=== PATIENT | male | born 1975 | race Two or more races ===

== ENCOUNTER 2024-10-02 07:59 | Inpatient (IN) | payer MEDICAID, OTHER ==
[~2024-10-02] VITALS: Ht 172.7 cm; Wt 165.8 kg
--- NOTE | 2024-10-02 08:41 | ED.PDOC ---
GI ASSESSMENT HPI Comments 48 y/o M, presents to the ED for CC of abdominal pain. Patient states, he has been experiencing diffuse abdominal pain with associated nausea onset, 1130 last night (10/01/24). Patient reports, he has been unable to have a bowel movement and has not been passing gas. Patient denies vomiting, diarrhea, melena, fever, or chills. No other symptoms or modifying factors present at this time. Chief Complaint: Abdominal Pain Time Seen by MD: 08:30 Reviewed Notes: Nurses Notes, Medications, Allergies Allergies: Coded Allergies: NO KNOWN ALLERGIES (Unverified , 10/02/24) Information Source: Patient Mode of Arrival: Ambulatory Timing: Hours Duration: Since onset Prehospital treatment: None Quality: None Vomitus: None Stool: Impaction Severity: Moderate Recent: None Recent Hx of: None Pain Location: Diffuse Modifying Factors: Nothing Associated sign and symptoms: Nausea, Abdominal Pain Past Medical History PAST MEDICAL HISTORY: Denies Surgical History: Denies all surgeries Family History Family History: Unknown Social History Smoker: Non-Smoker Alcohol: Denies ETOH Use Drugs: Denies Drug Use Lives In: Home Constitutional: denies: chills, diaphoresis, fatigue, fever, malaise, sweats, weakness, others EENTM: denies: blurred vision, double vision, ear bleeding, ear discharge, ear drainage, ear pain, ear ringing, eye pain, eye redness, hearing loss, mouth pain, mouth swelling, nasal discharge, nose bleeding, nose congestion, nose pain, photophobia, tearing, throat pain, throat swelling, voice changes, others Respiratory: denies: cough, hemoptysis, orthopnea, SOB at rest, shortness of breath, SOB with excertion, stridor, wheezing, others Cardiovascular: denies: chest pain, dizzy spells, diaphoresis, Dyspnea on exertion, edema, irregular heart beat, left arm pain, lightheadedness, palpitations, PND, syncope, others Gastrointestinal: reports: abdominal pain, nausea; denies: abdomen distended, blood streaked bowels, constipated, diarrhea, dysphagia, difficulty swallowing, hematemesis, melena, poor appetite, poor fluid intake, rectal bleeding, rectal pain, vomiting, others Genitourinary: denies: burning, dysuria, flank pain, frequency, hematuria, incontinence, penile discharge, penile sore, pain, testicle pain, testicle swelling, urgency, others Neurological: denies: dizziness, fainting, headache, left sided numbness, left sided weakness, numbness, paresthesia, pre-existing deficit, right sided numbness, right sided weakness, seizure, speech problems, tingling, tremors, wea kness, others Musculoskeletal: denies: back pain, gout, joint pain, joint swelling, muscle pain, muscle stiffness, neck pain, others Integumetry: denies: bruises, change in color, change in hair/nails, dryness, l aceration, lesions, lumps, rash, wounds, others Allergic/Immunocompromised: denies: Difficulty Healing, Frequent Infections, Hives, Itching, others Hematologic/Lymphatic: denies: anemia, blood clots, easy bleeding, easy bruising, swollen glands, others Endocrine: denies: excessive hunger, excessive sweating, excessive thirst, excessive urination, flushing, intolerance to cold, intolerance to heat, unexplained weight gain, unexplained weight loss, others Psychiatric: denies: anxiety, bipolar disorder, depression, hopeless, panic disorder, schizophrenia, sleepless, suicidal, others All Other Systems: Reviewed and Negative Physical Exam General Appearance: Moderate Distress HEENT: Normal ENT Inspection, Pharynx Normal, TMs Normal Neck: Full Range of Motion, Non-Tender, Normal, Normal Inspection Respiratory: Chest Non-Tender, Lungs Clear, No Accessory Muscle Use, No Respiratory Distress, Normal Breath Sounds Cardiovascular: No Edema, No JVD, No Murmur, No Gallop, Normal Peripheral Pulses, Regular Rate/Rhythm Breast Exam: Deferred Gastrointestinal: Diffuse, No Organomegaly, No Pulsatile Mass, Normal Bowel Sounds, Soft Genitalia: Deferred Pelvic: Deferred Rectal: Deferred Extremities: No calf tenderness, Normal capillary refill, Normal inspection, Normal range of motion, Non-tender, No pedal edema Musculoskeletal : Apperance: Normal Neurologic: Alert, lab tech II-XII nml as Tested, No Motor Deficits, Normal Affect, Normal Mood, No Sensory Deficits Cerebellar Function: NOT DONE Reflexes: NOT DONE Skin: Dry, Normal Color, Warm Peripheral Pulses: 3+ Radial (R), 3+ Radial (L) Lymphatic: No Adenopathy Was a procedure done? Was a procedure done?: No GI differential Dx Differential Diagnosis: Bowel Obstruction, Constipation, Diverticular disease, Gastritis/PUD, Gastroenteritis, Inflammatory BD, Electrolyte Imbalance, Food Poisoning, Bacterial, Viral X-Ray, Labs, Meds, VS Vital Signs Date Time Temp Pulse Resp B/P (MAP) Pulse Ox O2 Delivery O2 Flow Rate FiO2 10/02/24 10:31 98.7 94 16 107/73 (84) 97 98.7 10/02/24 09:48 94 16 107/73 10/02/24 09:25 98.8 108 22 134/72 (92) 97 98.8 10/02/24 09:25 108 22 97 Room Air 10/02/24 09:20 98 15 97 Room Air* 0 21 10/02/24 09:18 98 15 134/72 10/02/24 08:03 98.2 93 18 127/80 98 98.2 Lab Test 10/02/24 08:25 Range/Units White Blood Count 14.1 H 4.4-10.8 10^3/uL Red Blood Count 5.17 4.5-5.90 10^6/uL Hemoglobin 16.5 13.5-17.5 g/dL Hematocrit 46.0 41.0-53.0 % Mean Corpuscular Volume 89.0 80.0-100.0 fL Mean Corpuscular Hemoglobin 31.9 28.0-32.0 pg Mean Corpuscular Hemoglobin Concent 35.8 32.0-36.0 g/dL Red Cell Distribution Width 12.0 11.8-14.3 % Platelet Count 291 140-450 10^3/uL Mean Platelet Volume 8.0 6.9-10.8 fL Neutrophils (%) (Auto) 85.4 H 37.0-80.0 % Lymphocytes (%) (Auto) 6.2 L 10.0-50.0 % Monocytes (%) (Auto) 7.9 0.0-12.0 % Eosinophils (%) (Auto) 0.1 0.0-7.0 % Basophils (%) (Auto) 0.4 0.0-2.0 % Neutrophils # (Auto) 12.1 H 1.6-8.6 10 ^3/uL Lymphocytes # (Auto) 0.9 0.4-5.4 10 ^3/uL Monocytes # (Auto) 1.1 0-1.3 10 ^3/uL Eosinophils # (Auto) 0 0-0.8 10 ^3/uL Basophils # (Auto) 0.1 0-0.2 10 ^3/uL Nucleated Red Blood Cells 0.0 % Sodium Level 138 136-145 mmol/L Potassium Level 3.7 3.5-5.1 mmol/L Chloride Level 102 98-107 mmol/L Carbon Dioxide Level 27 20-31 mmol/L Anion Gap 9 5-15 Blood Urea Nitrogen 7 L 9-23 mg/dL Creatinine 0.90 0.700-1.30 mg/dL Glomerular Filtration Rate Calc 107 >90 mL/min BUN/Creatinine Ratio 7.8 L 10.0-20.0 Serum Glucose 111 H 74-106 mg/dL Calcium Level 9.2 8.7-10.4 mg/dL Current Medications Medications (Trade) Dose Ordered Sig/Corbin Route Start Time Stop Time Status Last Admin Morphine Sulfate 4 mg ONCE ONCE IV 10/02/24 08:45 10/02/24 08:46 DC 10/02/24 09:18 Ondansetron HCl (Zofran) 4 mg ONCE ONCE IV 10/02/24 08:45 10/02/24 08:46 DC 10/02/24 09:17 Sodium Chloride 1,000 ml @ 1,000 mls/hr Q1H ONCE IV 10/02/24 08:45 10/02/24 09:44 DC 10/02/24 09:17 Patient alert. Complaining of abdominal pain. WBC elevated. Hemoglobin within normal limits. Establish intravenous access. Was given fluids. Was given morphine. Was given Zofran. Possible colitis. Explained to the patient. Continue monitoring. [place] [id number] Ph: [phone] DIAGNOSTIC IMAGING Diagnostic Imaging Report : [id number] Signed with Addenda PATIENT: DANNI ELIZABETH LEOACCT: [id number] UNIT: [id number] : 1975 LOC: ER ROOM / BED: / AGE / SEX: 48 / M ADM STATUS: REG ER SERVICE [id number] ORDERING PHYSICIAN: NERIS AVILA MD PROCEDURE(s): ABPL - CT AB PEL WO CON-NO ORAL OR IV REASON: colitis ORDER NUMBER(s): [id number], ACCESSION NUMBER(s): [id number] ADDENDUM ADDENDUM # 1 Critical result: Sigmoid diverticulitis with contained perforation. Findings discussed with on 10/02/2024 at 11:55 a.m. TRAVEL REGISTERED NURSE ONCOLOGY, by Dr. Rubio with acknowledged receipt and understanding of the findings. ORIGINAL REPORT Exam: CT CT AB PEL WO CON-NO ORAL OR IV History: Colitis Comparison Study: None Technique: Multidetector spiral CT of the abdomen and pelvis was performed from lung bases to pubic symphysis. Imaging was performed without intravenous contrast. Coronal and sagittal multiplanar reformats were obtained from the axial data set by the technologist. Radiation Dose : 1. Abdomen/Pelvis: CTDIvol 9.71 mGy, DLP 584.9 mGy*cm. Findings: Evaluation of vasculature and solid organs is limited due to lack of intravenous contrast use. Lung Bases: Lung bases are clear. Visualized portions of the heart and pericardium are unremarkable. Liver: The liver is normal in size. No focal lesions. Gallbladder and Biliary Tree: The gallbladder is unremarkable. No intrahepatic or extrahepatic biliary ductal dilatation. Spleen: Unremarkable Pancreas: The pancreas is grossly unremarkable. Adrenal Glands: Unremarkable Kidneys: Kidneys are unremarkable without calculi or hydronephrosis. GI tract: The stomach is grossly normal in appearance. No evidence of small bowel wall thickening or abnormal dilatation to suggest bowel obstruction. Sigmoid diverticulosis. Marked mucosal thickening of the sigmoid colon with fat stranding consistent with acute sigmoid diverticulitis. Foci of air adjacent to the inflamed sigmoid colon consistent with contained perforation. Normal appendix. No acute appendicitis. Peritoneum/mesentery/retroperitoneum. Small foci of free intraperitoneal air adjacent to the inflamed sigmoid colon. No ascites. No evidence of suspicious lymphadenopathy. Abdominal Wall: Unremarkable. Vasculature: The visualized abdominal aorta is normal in size and caliber. Evaluation of abdominal and pelvic vessels is limited due to lack of intravenous contrast. Urinary Bladder: Grossly unremarkable for degree of distention. Pelvic Organs: Unremarkable Musculoskeletal: No aggressive focal bony lesions, acute fractures or dislocation. IMPRESSION: 1. Acute sigmoid diverticulitis with contained microperforation. No fluid collection to suggest abscess. ATED BY: SAL RUBIO MD DICTATED DATE/TIME: 10/02/24956 SIGNED BY: SAL RUBIO MD SIGNED DATE/TIME: 10/02/24956 CC: Exam: CT CT AB PEL WO CON-NO ORAL OR IV History: Colitis Comparison Study: None Technique: Multidetector spiral CT of the abdomen and pelvis was performed from lung bases to pubic symphysis. Imaging was performed without intravenous contrast. Coronal and sagittal multiplanar reformats were obtained from the axial data set by the technologist. Radiation Dose : 1. Abdomen/Pelvis: CTDIvol 9.71 mGy, DLP 584.9 mGy*cm. Findings: Evaluation of vasculature and solid organs is limited due to lack of intravenous contrast use. Lung Bases: Lung bases are clear. Visualized portions of the heart and pericardium are unremarkable. Liver: The liver is normal in size. No focal lesions. Gallbladder and Biliary Tree: The gallbladder is unremarkable. No intrahepatic or extrahepatic biliary ductal dilatation. Spleen: Unremarkable Pancreas: The pancreas is grossly unremarkable. Adrenal Glands: Unremarkable Kidneys: Kidneys are unremarkable without calculi or hydronephrosis. GI tract: The stomach is grossly normal in appearance. No evidence of small bowel wall thickening or abnormal dilatation to suggest bowel obstruction. S igmoid diverticulosis. Marked mucosal thickening of the sigmoid colon with fat stranding consistent with acute sigmoid diverticulitis. Foci of air adjacent to the inflamed sigmoid colon consistent with contained perforation. Normal appendix. No acute appendicitis. Peritoneum/mesentery/retroperitoneum. Small foci of free intraperitoneal air adjacent to the inflamed sigmoid colon. No ascites. No evidence of suspicious lymphadenopathy. Abdominal Wall: Unremarkable. Vasculature: The visualized abdominal aorta is normal in size and caliber. Evaluation of abdominal and pelvic vessels is limited due to lack of intravenous contrast. Urinary Bladder: Grossly unremarkable for degree of distention. Pelvic Organs: Unremarkable Musculoskeletal: No aggressive focal bony lesions, acute fractures or dislocation. IMPRESSION: 1. Acute sigmoid diverticulitis with contained microperforation. No fluid collection to suggest abscess. ATED BY: SAL RUBIO MD DICTATED DATE/TIME: 10/02/24947 SIGNED BY: SAL RUBIO MD SIGNED DATE/TIME: 10/02/24947 CC: Time of 1ST Reevaluation: 09:00 Reevaluation 1ST: Unchanged Patient Education/Counseling: Diagnosis, Treatment Family Education/Counseling: No Family Present SEPSIS Sepsis Screen Date sepsis recognized/suspect: Oct 02, 2024 Time Sepsis recognized/suspect: 803 Recent Procedure: No On Antibiotic Therapy: No Respiratory Rate >20: No Heart Rate >90: Yes Temp<36 C (96.8 F) or >38.3 C: No SBP <90 or MAP <65 mmHG: No New Acute Mental Status Change: No Is the patient on CPAP, BIPAP,: No Physician Orders Ct Ab Pel Wo Con-No Oral Or Iv (10/02/24 08:39) Saline Lock (10/02/24 09:11) * Surgical Consult (10/02/24 ) Vital Signs Date Time Temp Pulse Resp B/P (MAP) Pulse Ox O2 Delivery O2 Flow Rate FiO2 10/02/24 10:31 98.7 94 16 107/73 (84) 97 98.7 10/02/24 09:48 94 16 107/73 10/02/24 09:25 98.8 108 22 134/72 (92) 97 98.8 10/02/24 09:25 108 22 97 Room Air 10/02/24 09:20 98 15 97 Room Air* 0 21 10/02/24 09:18 98 15 134/72 10/02/24 08:03 98.2 93 18 127/80 98 98.2 Laboratory Tests Test 10/02/24 08:25 White Blood Count 14.1 10^3/uL (4.4-10.8) H Medications Medications Dose Ordered Sig/Corbin Route Start Time Stop Time Status Last Admin Dose Admin Morphine Sulfate 4 mg ONCE ONCE IV 10/02/24 08:45 10/02/24 08:46 DC 10/02/24 09:18 Ondansetron HCl 4 mg ONCE ONCE IV 10/02/24 08:45 10/02/24 08:46 DC 10/02/24 09:17 Sodium Chloride 1,000 ml @ 1,000 mls/hr Q1H ONCE IV 10/02/24 08:45 10/02/24 09:44 DC 10/02/24 09:17 Departure 1 Departure Time of Disposition: 08:59 Impression: Primary Impression: Acute abdominal pain Additional Impression: Diverticulitis of intestine Qualified Codes: K57.80 - Diverticulitis of intestine, part unspecified, with perforation and abscess without bleeding Disposition: ADMITTED INPATIENT Admit to: Med Surg Condition: Guarded Critical Care Note Critical Care Time?: Yes (90 min-critical care time only) Stability Stability form required: No Heart Score Heart Score: Heart Score Response (Comments) Value History N/A 0 EKG N/A 0 Age N/A 0 Risk Factors N/A 0 Troponin N/A 0 Total 0 I personally scribed for NERIS AVILA MD ([email or web address]) on 10/02/24 at 08:41. Electronically submitted by Danielle Chavarria ([email or web address]). I personally scribed for NERIS AVILA MD ([email or web address]) on 10/02/24 at 10:23. Electronically submitted by Danielle Chavarria ([email or web address]). NERIS AVILA MD Oct 02, 2024 08:41
[2024-10-02 08:51] LABS: Hematocrit 46.0 % (41.0-53.0); Hemoglobin 16.5 g/dL (13.5-17.5); Mean Corpuscular Hemoglobin 31.9 pg (28.0-32.0); Mean Corpuscular Volume 89.0 fL (80.0-100.0); Nucleated Red Blood Cells % 0.0 %
[2024-10-02 09:12] LABS: Chloride 102 mmol/L (98-107); Potassium 3.7 mmol/L (3.5-5.1); Sodium 138 mmol/L (136-145)
[2024-10-02 09:13] LABS: Anion Gap 9 (5-15); Carbon Dioxide 27 mmol/L (20-31)
[2024-10-02 09:14] LABS: Calcium 9.2 mg/dL (8.7-10.4)
[2024-10-02] MEDS: SODIUM CHLORIDE 0.9% 1,000 ML IV ONE ×2 (09:17→11:27)
[2024-10-02] MEDS: ONDANSETRON HCL 4 MG/2 ML VIAL IV ONE (09:17)
[2024-10-02] MEDS: MORPHINE SULFATE 4 MG/ML SYR/VIAL IV ONE (09:18)
[2024-10-02 09:19] LABS: BUN/Creatinine Ratio 7.8 (10.0-20.0); Blood Urea Nitrogen 7 mg/dL (9-23); Glucose 111 mg/dL (74-106)
[2024-10-02 09:20] VITALS: PULSE 98; RESP 15; O2SAT 97
--- NOTE | 2024-10-02 09:49 | DVH ---
Exam: CT CT AB PEL WO CON-NO ORAL OR IV History: Colitis Comparison Study: None Technique: Multidetector spiral CT of the abdomen and pelvis was performed from lung bases to pubic s ymphysis. Imaging was performed without intravenous contrast. Coronal and sagittal multiplanar reform ats were obtained from the axial data set by the technologist. Radiation Dose : 1. Abdomen/Pelvis: CTDIvol 9.71 mGy, DLP 584.9 mGy*cm. Findings: Evaluation of vasculature and solid organs is limited due to lack of intravenous contrast use. Lung Bases: Lung bases are clear. Visualized portions of the heart and pericardium are unremarkable. Liver: The liver is normal in size. No focal lesions. Gallbladder and Biliary Tree: The gallbladder is unremarkable. No intrahepatic or extrahepatic biliar y ductal dilatation. Spleen: Unremarkable Pancreas: The pancreas is grossly unremarkable. Adrenal Glands: Unremarkable Kidneys: Kidneys are unremarkable without calculi or hydronephrosis. GI tract: The stomach is grossly normal in appearance. No evidence of small bowel wall thickening or abnormal dilatation to suggest bowel obstruction. Sigmoid diverticulosis. Marked mucosal thickening of the sigmoid colon with fat stranding consistent with acute sigmoid diverticulitis. Foci of air adj acent to the inflamed sigmoid colon consistent with contained perforation. Normal appendix. No acute appendicitis. Peritoneum/mesentery/retroperitoneum. Small foci of free intraperitoneal air adjacent to the inflamed sigmoid colon. No ascites. No evidence of suspicious lymphadenopathy. Abdominal Wall: Unremarkable. Vasculature: The visualized abdominal aorta is normal in size and caliber. Evaluation of abdominal a nd pelvic vessels is limited due to lack of intravenous contrast. Urinary Bladder: Grossly unremarkable for degree of distention. Pelvic Organs: Unremarkable Musculoskeletal: No aggressive focal bony lesions, acute fractures or dislocation. IMPRESSION: 1. Acute sigmoid diverticulitis with contained microperforation. No fluid collection to suggest absce ss.
[2024-10-02] MEDS ORDERED: SODIUM CHLORIDE 0.9% 1,000 ML IV ONE (11:00)
[2024-10-02] MEDS: cefTRIAXone 1GM/50ML D5W 50 ML IV ONE ×2 (12:02→12:24)
[2024-10-02] MEDS: SODIUM CHLORIDE 0.9% 1,000 ML IV SCH (12:30)
[2024-10-02] MEDS ORDERED: TEMAZEPAM 15 MG CAP PO PRN (12:30)
[2024-10-02] MEDS ORDERED: ONDANSETRON HCL 4 MG/2 ML VIAL IV PRN (12:30)
[2024-10-02] MEDS ORDERED: NITROGLYCERIN 0.4 MG SL TAB SL PRN (12:30)
--- NOTE | 2024-10-02 12:31 | DVHHP2 ---
History of Present Illness Reason for Visit: Abdominal pain History of Present Illness 48-year-old male with no known past medical or surgical history presents with acute abdominal pain that began around 10:30 PM last night. The pain has been persistent since onset, described as sharp in nature, without any identified alleviating or aggravating factors. He denies fever, vomiting, diarrhea, melena, or hematemesis, but reports noticing a small amount of blood when wiping. He has never experienced similar symptoms before. In the ED, vital signs were stable. Laboratory evaluation revealed leukocytosis with WBC 14.1 remainder of CBC and BMP were unremarkable. CT abdomen and pelvis demonstrated acute sigmoid d iverticulitis with microperforation. He is admitted for IV antibiotics, pain control, and surgical evaluation. Past Medical History See HPI above Past Surgical History See HPI above Family History Reviewed, non-contributory to the management of this case. Past Social History The patient lives at home, denies smoking, alcohol or illicit drugs abuse. Review of Systems Constitutional: No: Fever, Chills, Sweats, Weakness, Malaise, Other Eyes: No: Pain, Vision change, Conjunctivae inflammation, Eyelid inflammation, Other, Redness ENT: No: Ear pain, Ear discharge, Nose pain, Nose discharge, Nose congestion, Mouth pain, Mouth swelling, Throat pain, Throat swelling, Other Respiratory: No: Cough, Dry, Shortness of breath, SOB with excertion, Wheezing, Hemoptysis, Pleuritic Pain, Sputum, Wheezing, Other Cardiovascular: No: Chest Pain, Palpitations, Orthopnea, Paroxysmal Noc. Dyspnea, Edema, Lt Headedness, Other Gastrointestinal: Nausea, Vomiting, Abdominal Pain; No: Diarrhea, Constipation, Melena, Hematochezia, Other Genitourinary: No Dysuria, No Frequency, No Incontinence, No Hematuria, No Retention, No Other Musculoskeletal: No: other, neck pain, shoulder pain, arm pain, back pain, hand pain, leg pain, foot pain Skin: No: Rash, Lesions, Jaundice, Bruising, Other Neurological: No: Weakness, Numbness, Incoordination, Change in speech, Confusion, Seizures, Other Allergies: Coded Allergies: NO KNOWN ALLERGIES (Unverified , 10/02/24) Exam Vital Signs Vital Signs Date Time Temp Pulse Resp B/P (MAP) Pulse Ox O2 Delivery O2 Flow Rate FiO2 10/02/24 10:31 98.7 94 16 107/73 (84) 97 98.7 10/02/24 09:25 Room Air 10/02/24 09:20 0 21 General Appearance: Alert, Oriented X3, Cooperative, No acute distress HEENT: Atraumatic, PERRLA, EOMI, Mucous membr. moist/pink Respiratory: Clear to auscultation, Normal air movement Cardiovascular: Regular rate, Normal S1, Normal S2, No murmurs Abdominal: Normal bowel sounds, No hepatospenomegaly, No masses, Other (guarding and rebound tenderness) Extremities: No clubbing, No cyanosis, No edema, Normal pulses, No tenderness/swelling Skin: No rashes, No breakdown, No significant lesion Neuro: Normal gait, Normal speech, Strength at 5/5 X4 ext, Normal tone, Sensation intact, Cranial nerves 3-12 NL Psych/Mental Status: Mental status NL, Mood NL Labs/Xrays CT abdomen and pelvis shows acute sigmoid diverticulitis with microperforation I reviewed labs, imaging CT scan abdomen pelvis, EKG and all diagnostic studies on this patient from ED records and the medical chart Labs Test 10/02/24 11:34 10/02/24 08:25 Range/Units Lactic Acid Level 1.5 0.4-2.0 mmol/L White Blood Count 14.1 H 4.4-10.8 10^3/uL Red Blood Count 5.17 4.5-5.90 10^6/uL Hemoglobin 16.5 13.5-17.5 g/dL Hematocrit 46.0 41.0-53.0 % Mean Corpuscular Volume 89.0 80.0-100.0 fL Mean Corpuscular Hemoglobin 31.9 28.0-32.0 pg Mean Corpuscular Hemoglobin Concent 35.8 32.0-36.0 g/dL Red Cell Distribution Width 12.0 11.8-14.3 % Platelet Count 291 140-450 10^3/uL Mean Platelet Volume 8.0 6.9-10.8 fL Neutrophils (%) (Auto) 85.4 H 37.0-80.0 % Lymphocytes (%) (Auto) 6.2 L 10.0-50.0 % Monocytes (%) (Auto) 7.9 0.0-12.0 % Eosinophils (%) (Auto) 0.1 0.0-7.0 % Basophils (%) (Auto) 0.4 0.0-2.0 % Neutrophils # (Auto) 12.1 H 1.6-8.6 10 ^3/uL Lymphocytes # (Auto) 0.9 0.4-5.4 10 ^3/uL Monocytes # (Auto) 1.1 0-1.3 10 ^3/uL Eosinophils # (Auto) 0 0-0.8 10 ^3/uL Basophils # (Auto) 0.1 0-0.2 10 ^3/uL Nucleated Red Blood Cells 0.0 % Sodium Level 138 136-145 mmol/L Potassium Level 3.7 3.5-5.1 mmol/L Chloride Level 102 98-107 mmol/L Carbon Dioxide Level 27 20-31 mmol/L Anion Gap 9 5-15 Blood Urea Nitrogen 7 L 9-23 mg/dL Creatinine 0.90 0.700-1.30 mg/dL Glomerular Filtration Rate Calc 107 >90 mL/min BUN/Creatinine Ratio 7.8 L 10.0-20.0 Serum Glucose 111 H 74-106 mg/dL Calcium Level 9.2 8.7-10.4 mg/dL SEPSIS Sepsis Screen Date sepsis recognized/suspect: Oct 02, 2024 Time Sepsis recognized/suspect: 08 Recent Procedure: No On Antibiotic Therapy: No Respiratory Rate >20: No Heart Rate >90: Yes Temp<36 C (96.8 F) or >38.3 C: No SBP <90 or MAP <65 mmHG: No New Acute Mental Status Change: No Is the patient on CPAP, BIPAP,: No Physician Orders Ct Ab Pel Wo Con-No Oral Or Iv (10/02/24 08:39) Saline Lock (10/02/24 09:11) * Surgical Consult (10/02/24 ) Blood Culture (10/02/24 10:55) Sodium Chloride 0.9% (10/02/24 11:00) Vital Signs Date Time Temp Pulse Resp B/P (MAP) Pulse Ox O2 Delivery O2 Flow Rate FiO2 10/02/24 10:31 98.7 94 16 107/73 (84) 97 98.7 10/02/24 09:48 94 16 107/73 10/02/24 09:25 98.8 108 22 134/72 (92) 97 98.8 10/02/24 09:25 108 22 97 Room Air 10/02/24 09:20 98 15 97 Room Air* 0 21 10/02/24 09:18 98 15 134/72 10/02/24 08:03 98.2 93 18 127/80 98 98.2 Laboratory Tests Test 10/02/24 08:25 10/02/24 11:34 White Blood Count 14.1 10^3/uL (4.4-10.8) H Lactic Acid Level 1.5 mmol/L (0.4-2.0) Medications Medications Dose Ordered Sig/Corbin Route Start Time Stop Time Status Last Admin Dose Admin Ceftriaxone Sodium 50 ml @ 100 mls/hr ONCE ONCE IV 10/02/24 11:00 10/02/24 11:29 DC 10/02/24 12:24 100 MLS/HR Metronidazole 100 ml @ 100 mls/hr ONCE ONCE IV 10/02/24 11:00 10/02/24 11:59 DC 10/02/24 11:54 100 MLS/HR Morphine Sulfate 4 mg ONCE ONCE IV 10/02/24 08:45 10/02/24 08:46 DC 10/02/24 09:18 4 MG Ondansetron HCl 4 mg ONCE ONCE IV 10/02/24 08:45 10/02/24 08:46 DC 10/02/24 09:17 4 MG Sodium Chloride 1,000 ml @ 1,000 mls/hr Q1H ONCE IV 10/02/24 08:45 10/02/24 09:44 DC 10/02/24 09:17 1,000 MLS/HR Sodium Chloride 1,000 ml @ 1,000 mls/hr Q1H ONCE IV 10/02/24 11:00 10/02/24 11:59 DC 10/02/24 11:27 1,000 MLS/HR Assessment/Plan Assessment/Plan 48 yr old male with Acute sigmoid diverticulitis with microperforation, requiring IV antibiotics, pain management, and surgical consultation. Acute Sigmoid Diverticulitis with Microperforation critical diagnosis Admit to inpatient medicine NPO initially, IV antibiotics: piperacillin-tazobactam (Zosyn) IV fluids for hydration Pain management with IV analgesics as needed General surgery consult for co-management Dr. Martin Monitor for signs of peritonitis or worsening perforation pre op cxr, type and screen inr and ekg acute Leukocytosis secondary to intra-abdominal infection Monitor CBC daily Continue antibiotics as above Repeat labs if clinical worsening FEN / PPx Fluids: IV NS maintenance until tolerating oral intake Electrolytes: Monitor daily; replete as needed Nutrition: NPO initially; DVT Prophylaxis: scd since possible planned surgery GI Prophylaxis: Pantoprazole 40 mg IV daily while NPO Disposition: Admit to inpatient service for IV antibiotics, pain control, surgical co- management, and monitoring for potential complications of diverticulitis with microperforation. Plan discussed with: Patient Date of Service: Oct 02, 2024 Billing Provider: MILTON RODRIGUEZ DNP Common Visit Codes: [id number] INP/OBS CARE (HIGH) MILTON RODRIGUEZ DNP Oct 02, 2024 12:31
[2024-10-02] MEDS: PANTOPRAZOLE 40 MG/10 ML VIAL INJ IV ONE (13:00)
[2024-10-02] MEDS: PIPERACILLIN-TAZOB 3.375GM 100 ML IV ONE (13:00)
[2024-10-02 13:21] LABS: INR 1.05 (0.9-1.15); Prothrombin Time 11.1 sec (9.3-11.8)
--- NOTE | 2024-10-02 15:11 | DVHINCON2 ---
Date of service: Oct 02, 2024 Allergies: Coded Allergies: NO KNOWN ALLERGIES (Unverified , 10/02/24) Current Medications Current Medications Medications (Trade) Dose Ordered Sig/Corbin Route PRN Reason Start Time Stop Time Status Last Admin Sodium Chloride 1,000 ml @ 120 mls/hr Q8H20M IV 10/02/24 12:30 Temazepam (Restoril) 15 mg QHSP PRN PO FOR INSOMNIA 10/02/24 12:30 Ondansetron HCl (Zofran) 4 mg Q4HP PRN IV NAUSEA / VOMITING 10/02/24 12:30 Morphine Sulfate 2 mg Q4HPRN PRN IV SEVERE PAIN (7-10 PAIN SCALE) 10/02/24 12:30 Nitroglycerin (Ntrostat Sublingual) 0.4 mg Q5MINP PRN SL FOR CHEST PAIN 10/02/24 12:30 Piperacillin Sod/ Tazobactam Sod 100 ml @ 25 mls/hr Q6HR IV 10/02/24 18:00 Pantoprazole Sodium (Protonix) 40 mg DAILY IV 10/03/24 10:00 Vital Signs Vital Signs Date Time Temp Pulse Resp B/P (MAP) Pulse Ox O2 Delivery O2 Flow Rate FiO2 10/02/24 14:24 98.3 82 16 105/81 (89) 98 98.3 10/02/24 09:25 Room Air 10/02/24 09:20 0 21 Labs/Diagnostic Data Labs Test 10/02/24 12:45 10/02/24 11:34 10/02/24 08:25 Range/Units Prothrombin Time 11.1 9.3-11.8 sec Prothrombin Time INR 1.05 0.9-1.15 Lactic Acid Level 1.5 0.4-2.0 mmol/L White Blood Count 14.1 H 4.4-10.8 10^3/uL Red Blood Count 5.17 4.5-5.90 10^6/uL Hemoglobin 16.5 13.5-17.5 g/dL Hematocrit 46.0 41.0-53.0 % Mean Corpuscular Volume 89.0 80.0-100.0 fL Mean Corpuscular Hemoglobin 31.9 28.0-32.0 pg Mean Corpuscular Hemoglobin Concent 35.8 32.0-36.0 g/dL Red Cell Distribution Width 12.0 11.8-14.3 % Platelet Count 291 140-450 10^3/uL Mean Platelet Volume 8.0 6.9-10.8 fL Neutrophils (%) (Auto) 85.4 H 37.0-80.0 % Lymphocytes (%) (Auto) 6.2 L 10.0-50.0 % Monocytes (%) (Auto) 7.9 0.0-12.0 % Eosinophils (%) (Auto) 0.1 0.0-7.0 % Basophils (%) (Auto) 0.4 0.0-2.0 % Neutrophils # (Auto) 12.1 H 1.6-8.6 10 ^3/uL Lymphocytes # (Auto) 0.9 0.4-5.4 10 ^3/uL Monocytes # (Auto) 1.1 0-1.3 10 ^3/uL Eosinophils # (Auto) 0 0-0.8 10 ^3/uL Basophils # (Auto) 0.1 0-0.2 10 ^3/uL Nucleated Red Blood Cells 0.0 % Sodium Level 138 136-145 mmol/L Potassium Level 3.7 3.5-5.1 mmol/L Chloride Level 102 98-107 mmol/L Carbon Dioxide Level 27 20-31 mmol/L Anion Gap 9 5-15 Blood Urea Nitrogen 7 L 9-23 mg/dL Creatinine 0.90 0.700-1.30 mg/dL Glomerular Filtration Rate Calc 107 >90 mL/min BUN/Creatinine Ratio 7.8 L 10.0-20.0 Serum Glucose 111 H 74-106 mg/dL Calcium Level 9.2 8.7-10.4 mg/dL Assessment [id number] C/O LLQ PAIN AFEBRILE VSS ABD SOFT TENDER LLQ AC SIGMOID DIVERTICULITIS CONTAINED MICROPERFORATION CLOSE OBSERVATION KEEP NPO IV ABX CONSIDER REPEAT CT SCAN 48 HRS CONSIDER EMERGENT SURGERY BASED ON ONGOING EVAL Plan discussed with: Other SHERIE SY MD Oct 02, 2024 15:10
--- NOTE | 2024-10-02 15:49 | DVHINCON2 ---
DATE OF CONSULTATION: 10/02/2024 HISTORY OF PRESENT ILLNESS: This patient is 48 years old coming in with left lower quadrant pain started yesterday. He has not had this happen before. Some nausea. No vomiting. No constipation or diarrhea. No hematemesis or melena. No bleeding per rectum. PAST MEDICAL HISTORY: No diabetes or hypertension. PAST SURGICAL HISTORY: No surgical history. PHYSICAL EXAMINATION: VITAL SIGNS: Afebrile. Stable signs. HEENT: No evidence of pallor, cyanosis, or jaundice. NECK: Supple and nontender with no thyromegaly or lymphadenopathy. CHEST AND LUNGS: Clear. HEART: Within normal limits. ABDOMEN: Soft. He is tender in the left lower quadrant. No rebound. EXTREMITIES: Unremarkable. NEUROLOGICAL: Intact. CLINICAL IMPRESSION: Sigmoid diverticulitis with contained perforation. PLAN: At this point, needs conservative management, close observation, kept n.p.o. with IV antibiotics and repeat CT scan of the abdomen and pelvis to determine need for surgery or to determine if he is responding to the conservative management. MD VASYL El/ADALBERTO TID: [id number] RECEIPT: [id number] cc: ANNELIESE Keys
[2024-10-02 16:55] VITALS: BP 119/71; PULSE 90; RESP 18; TEMP 98.4; O2SAT 97
[2024-10-02] MEDS: PIPERACILLIN-TAZOB 3.375GM 100 ML IV SCH (17:48)
[2024-10-02] MEDS: MORPHINE SULFATE INJ 2 MG/ml SYRG IV PRN (18:46)
[2024-10-02 21:49] VITALS: BP 107/60; PULSE 81; RESP 20; TEMP 99.8; O2SAT 95
[2024-10-03] VITALS (8 sets, daily range): BP systolic 107–124; BP diastolic 64–73; PULSE 80–109; RESP 16–20; TEMP 98.2–98.9; O2SAT 96–98
[2024-10-03] MEDS ORDERED: ALBUAER3 IN (00:15)
[2024-10-03 05:04] LABS: Hematocrit 42.3 % (41.0-53.0); Hemoglobin 15.0 g/dL (13.5-17.5); Mean Corpuscular Hemoglobin 31.9 pg (28.0-32.0); Mean Corpuscular Volume 89.9 fL (80.0-100.0); Nucleated Red Blood Cells % 0.1 %
[2024-10-03 05:30] LABS: Alanine Aminotransferase 21 U/L (7-40); Albumin 4.1 g/dL (3.2-4.8); Alkaline Phosphatase 64 U/L (46-116); Anion Gap 10 (5-15); BUN/Creatinine Ratio 7.9 (10.0-20.0); Calcium 8.7 mg/dL (8.7-10.4); Carbon Dioxide 24 mmol/L (20-31); Chloride 104 mmol/L (98-107); Potassium 3.5 mmol/L (3.5-5.1); Sodium 138 mmol/L (136-145); Total Protein 6.5 g/dL (5.7-8.2)
[2024-10-03 05:31] LABS: Bilirubin, Total 2.3 mg/dL (0.2-1.0); Blood Urea Nitrogen 7 mg/dL (9-23); Glucose 107 mg/dL (74-106)
[2024-10-03] MEDS: PANTOPRAZOLE 40 MG/10 ML VIAL INJ IV SCH (09:15)
--- NOTE | 2024-10-03 15:49 | DVHPN2 ---
Assessment/Plan Assessment/Plan progress note 48 M admitted for diverticulitis with contained perf. seen by [facility], for conservative management physical exam aox4 PERLLA MMM ctab s1 s2 rrr abdomen soft, tender, no guarding no LE edema labs ekg imaging reviewed acute diverticulitis with rupture surg eval zosyn pain mgmt NPO diet NPO dvt ppx hold full code Plan discussed with: Patient Date of Service: Oct 03, 2024 Billing Provider: EDWIN MCMAHAN MD Common Visit Codes: [id number] INP/OBS CARE(HIGH) EDWIN MCMAHAN MD Oct 03, 2024 15:49
--- NOTE | 2024-10-03 20:26 | DVHPN2 ---
Progress Note Date Seen: Oct 03, 2024 Medical Necessity Reason Pt with a Central, PICC or Fol: No Objective vital signs Vital Sign Date Time Temp Pulse Resp B/P (MAP) Pulse Ox O2 Delivery O2 Flow Rate FiO2 10/03/24 18:28 102 16 121/78 10/03/24 17:16 98.6 97 98.6 10/03/24 07:49 Room Air* 0 21 Total Intake and Output 10/02/24 10/02/24 10/03/24 15:00 23:00 07:00 Intake Total 2100 ml 100 ml 100 ml Balance 2100 ml 100 ml 100 ml medications Current Medications Medications Dose Ordered Sig/Corbin Route Start Time Stop Time Status Last Admin Dose Admin Sodium Chloride 1,000 ml @ 120 mls/hr Q8H20M IV 10/02/24 12:30 10/03/24 13:30 120 MLS/HR Morphine Sulfate 2 mg Q4HPRN PRN IV 10/02/24 12:30 10/03/24 17:59 2 MG Piperacillin Sod/ Tazobactam Sod 100 ml @ 25 mls/hr Q6HR IV 10/02/24 18:00 10/03/24 17:47 25 MLS/HR Pantoprazole Sodium 40 mg DAILY IV 10/03/24 10:00 10/03/24 09:15 40 MG laboratory and microbiology Laboratory Tests 10/03/24 04:13 Test 10/03/24 04:13 Range/Units Serum Glucose 107 H 74-106 mg/dL Microbiology Date/Time Source Procedure Growth Status 10/02/24 11:34 Blood Blood Culture - Preliminary NO GROWTH AFTER 24 HOURS OF INCUBATION. Resulted Problem List/Assessment/Plan Problem List/Assessment/Plan AFEBRILE VSS ABD SOFT LESS TENDER REPEAT CT SCAN ABD PELVIS WITH PO CONTRAST NURSE AT BEDSIDE Plan discussed with: Patient SHERIE SY MD Oct 03, 2024 20:26
[2024-10-04] VITALS (8 sets, daily range): BP systolic 102–132; BP diastolic 60–78; PULSE 61–96; RESP 16–20; TEMP 97.9–98.9; O2SAT 94–96
[2024-10-04 07:42] LABS: Anion Gap 10 (5-15); Carbon Dioxide 24 mmol/L (20-31); Chloride 106 mmol/L (98-107); Sodium 140 mmol/L (136-145)
[2024-10-04 07:43] LABS: Calcium 9.0 mg/dL (8.7-10.4)
[2024-10-04 07:48] LABS: BUN/Creatinine Ratio 10.2 (10.0-20.0); Blood Urea Nitrogen 9 mg/dL (9-23); Glucose 87 mg/dL (74-106)
[2024-10-04 07:51] LABS: Potassium 3.5 mmol/L (3.5-5.1)
[2024-10-04 08:34] LABS: Hematocrit 41.9 % (41.0-53.0); Hemoglobin 14.9 g/dL (13.5-17.5); Mean Corpuscular Hemoglobin 32.0 pg (28.0-32.0); Mean Corpuscular Volume 90.1 fL (80.0-100.0); Nucleated Red Blood Cells % 0.2 %
--- NOTE | 2024-10-04 12:08 | DVHPN2 ---
Progress Note Date Seen: Oct 04, 2024 Medical Necessity Reason Pt with a Central, PICC or Fol: No Objective vital signs Vital Sign Date Time Temp Pulse Resp B/P (MAP) Pulse Ox O2 Delivery O2 Flow Rate FiO2 10/04/24 09:00 98.1 96 16 132/77 (95) 96 98.1 10/04/24 08:00 Room Air* 0 21 Total Intake and Output 10/03/24 10/03/24 10/04/24 15:00 23:00 07:00 Intake Total 100 ml 100 ml 100 ml Balance 100 ml 100 ml 100 ml medications Current Medications Medications Dose Ordered Sig/Corbin Route Start Time Stop Time Status Last Admin Dose Admin Sodium Chloride 1,000 ml @ 120 mls/hr Q8H20M IV 10/02/24 12:30 10/03/24 13:30 120 MLS/HR Morphine Sulfate 2 mg Q4HPRN PRN IV 10/02/24 12:30 10/04/24 05:06 2 MG Piperacillin Sod/ Tazobactam Sod 100 ml @ 25 mls/hr Q6HR IV 10/02/24 18:00 10/04/24 05:04 25 MLS/HR Pantoprazole Sodium 40 mg DAILY IV 10/03/24 10:00 10/04/24 11:15 40 MG laboratory and microbiology Laboratory Tests 10/04/24 07:09 Test 10/04/24 07:09 Range/Units Serum Glucose 87 74-106 mg/dL Microbiology Date/Time Source Procedure Growth Status 10/02/24 11:34 Blood Blood Culture - Preliminary NO GROWTH AFTER 48 HOURS OF INCUBATION. Resulted Problem List/Assessment/Plan Problem List/Assessment/Plan AFEBRILE VSS ABD SOFT LESS TENDER REPEAT CT SCAN ABD PELVIS WITH PO CONTRAST PENDING Plan discussed with: Patient My Orders My Orders Orders - SHERIE SY MD Procedure Category Date Status Time Ct Ab Pel With Oral CT 10/04/24 Logged Con Only 09:00 Dietary Evaluation Review Comments: 1) If patient remains NPO > 7 days, consider EN/TPN to meet at least 75% of estimated daily needs 2) Advance to low-fat, low-fiber diet when medically feasible 3) Follow-up with gastroenterology 4) Continue to monitor I&O, labs, and skin integrity Expected Outcomes/Goals: 1) patient to receive nutrition support within 7 days of NPO status 2) GI symptoms and labs to improve 3) diet to advance 4) f/u in 2-3 days SHERIE SY MD Oct 04, 2024 12:08
--- NOTE | 2024-10-04 14:02 | DVH ---
Exam: CT CT AB PEL WITH ORAL CON ONLY History: Diverticulitis Comparison Study: CT CT AB PEL WO CON-NO ORAL OR IV on DOS: 10/02/24 Technique: Multidetector CT of the abdomen and pelvis with oral contrast only. Axial, coronal and sag ittal multiplanar reformats were performed by the technologist on a separate workstation. Radiation Dose Information: CT Dose: CTDI volume is 7.83 mGy. Dose-length product is 3.92 mGy*cm Findings: Bibasilar atelectasis. Partially visualized heart is unremarkable. Mild hepatomegaly. Otherwise, liver, spleen, gallbladder, pancreas and adrenal glands unremarkable. Kidneys and Ureters are unremarkable. Mild wall thickening of the urinary bladder which is most likel y from inadequate distension. Stomach is unremarkable. Wall thickening of Segment of distal small bowel within the lower abdomen an d pelvis with adjacent fat stranding which may be reactive from the sigmoid diverticulitis. The remai nder of the small bowel loops unremarkable. Appendix is contrast filled and normal in size. Fat stra nding adjacent to the appendix which is most likely sigmoid diverticulitis. Oral contrast is noted wi thin the distal small bowel loops and large bowel. Descending colon and sigmoid diverticulosis with f at stranding adjacent to The sigmoid and associated minimal foci of air ; slightly worsened from prio r imaging. No evidence of intraperitoneal free fluid. No evidence of aortic aneurysm. No significant lymphadenopathy. Tiny fat containing umbilical hernia. Small fat containing bilateral inguinal hernia. No evidence of acute osseous abnormalities. IMPRESSION: Descending colon and Sigmoid diverticulosis with slightly worsened Acute sigmoid diverticulitis with contained perforation. Wall thickening of the segment of small bowel within the pelvis and lower abdomen with adjacent fat s tranding which may be reactive from the adjacent sigmoid diverticulitis with enteritis not excluded. No associated absence. Mild wall thickening of the urinary bladder which is most likely due to inadequate distention. Correl ation with urinalysis is recommended to exclude cystitis.
--- NOTE | 2024-10-04 16:54 | DVHPN2 ---
Assessment/Plan Assessment/Plan progress note 48 M admitted for diverticulitis with contained perf. seen by [facility], for conservative management seen today, repeat CT with worsening sigmoid diverticulitis with contained perf. pain controlled. still NPO pending surg clearance. physical exam aox4 PERLLA MMM ctab s1 s2 rrr abdomen soft, tender, no guarding no LE edema labs ekg imaging reviewed acute diverticulitis with rupture surg eval zosyn pain mgmt NPO diet NPO dvt ppx hold full code Plan discussed with: Patient Date of Service: Oct 04, 2024 Billing Provider: EDWIN MCMAHAN MD Common Visit Codes: [id number] INP/OBS CARE(HIGH) EDWIN MCMAHAN MD Oct 04, 2024 16:54
[2024-10-05] VITALS (7 sets, daily range): BP systolic 109–122; BP diastolic 71–81; PULSE 65–86; RESP 16–18; TEMP 97.5–98.2; O2SAT 96–99
[2024-10-05 05:51] LABS: Hematocrit 42.2 % (41.0-53.0); Hemoglobin 15.0 g/dL (13.5-17.5); Mean Corpuscular Hemoglobin 31.8 pg (28.0-32.0); Mean Corpuscular Volume 89.3 fL (80.0-100.0); Nucleated Red Blood Cells % 0.0 %
[2024-10-05 05:59] LABS: Anion Gap 13 (5-15); Carbon Dioxide 24 mmol/L (20-31); Chloride 104 mmol/L (98-107); Sodium 141 mmol/L (136-145)
[2024-10-05 06:00] LABS: Calcium 9.0 mg/dL (8.7-10.4)
[2024-10-05 06:01] LABS: Potassium 3.2 mmol/L (3.5-5.1)
[2024-10-05 06:05] LABS: BUN/Creatinine Ratio 14.1 (10.0-20.0); Blood Urea Nitrogen 11 mg/dL (9-23)
[2024-10-05 06:06] LABS: Glucose 67 mg/dL (74-106)
[2024-10-05] MEDS ORDERED: POTASSIUM CHL 20MEQ/100ML 100 ML IV SCH ×2 (12:00→12:15)
--- NOTE | 2024-10-05 12:34 | DVHPN2 ---
Assessment/Plan Assessment/Plan progress note 48 M admitted for diverticulitis with contained perf. seen by [facility], for conservative management seen today, pain improved, leukocytosis resolved. pending surg clearance for oral intake. c/w iv abx. hypoglycemic, start d5LR with K physical exam aox4 PERLLA MMM ctab s1 s2 rrr abdomen soft, tender, no guarding no LE edema labs ekg imaging reviewed acute diverticulitis with rupture surg eval zosyn pain mgmt NPO diet NPO dvt ppx hold full code Plan discussed with: Patient My Orders Orders - EDWIN MCMAHAN MD Procedure Category Date Status Time Potassium Chl PHA 10/05/24 In Process 20meq/100ml 12:15 Date of Service: Oct 05, 2024 Billing Provider: EDWIN MCMAHAN MD Common Visit Codes: [id number] INP/OBS CARE(HIGH) EDWIN MCMAHAN MD Oct 05, 2024 12:34
[2024-10-05] MEDS ORDERED: POTASSIUM CHLORIDE 20 MEQ in D5W/LACTATED RINGERS 1,000 ML IV SCH (12:45)
--- NOTE | 2024-10-05 17:11 | DVHPN2 ---
Progress Note Date Seen: Oct 05, 2024 Medical Necessity Reason Pt with a Central, PICC or Fol: No Objective vital signs Vital Sign Date Time Temp Pulse Resp B/P (MAP) Pulse Ox O2 Delivery O2 Flow Rate FiO2 10/05/24 16:53 97.7 72 17 122/81 (95) 99 97.7 10/05/24 08:15 Room Air* 0 21 Total Intake and Output 10/04/24 10/04/24 10/05/24 15:00 23:00 07:00 Intake Total 100 ml 200 ml 100 ml Balance 100 ml 200 ml 100 ml medications Current Medications Medications Dose Ordered Sig/Corbin Route Start Time Stop Time Status Last Admin Dose Admin Morphine Sulfate 2 mg Q4HPRN PRN IV 10/02/24 12:30 10/05/24 05:39 2 MG Piperacillin Sod/ Tazobactam Sod 100 ml @ 25 mls/hr Q6HR IV 10/02/24 18:00 10/05/24 12:55 25 MLS/HR Pantoprazole Sodium 40 mg DAILY IV 10/03/24 10:00 10/05/24 10:43 40 MG Potassium Chloride 20 meq/ Dextrose/Lactated Ringer's 1,010 ml @ 100 mls/hr Q10H6M IV 10/05/24 12:45 laboratory and microbiology Laboratory Tests 10/05/24 04:55 Test 10/05/24 04:55 Range/Units Serum Glucose 67 L 74-106 mg/dL Microbiology Date/Time Source Procedure Growth Status 10/02/24 11:34 Blood Blood Culture - Preliminary NO GROWTH AFTER 72 HOURS OF INCUBATION. Resulted Problem List/Assessment/Plan Problem List/Assessment/Plan AFEBRILE VSS ABD SOFT NON TENDER REPEAT CT SCAN ABD PELVIS WITH PO CONTRAST ONGOING DIVERTICULITIS NO INDICATION FOR URGENT SURGERY ALLOW CLEAR LIQUIDS Plan discussed with: Patient My Orders My Orders Orders - SHERIE SY MD Procedure Category Date Status Time Clear Liq Diet DIET 10/05/24 Transmitted Dinner Dietary Evaluation Review Comments: 1) If patient remains NPO > 7 days, consider EN/TPN to meet at least 75% of estimated daily needs 2) Advance to low-fat, low-fiber diet when medically feasible 3) Follow-up with gastroenterology 4) Continue to monitor I&O, labs, and skin integrity Expected Outcomes/Goals: 1) patient to receive nutrition support within 7 days of NPO status 2) GI symptoms and labs to improve 3) diet to advance 4) f/u in 2-3 days SHERIE SY MD Oct 05, 2024 17:11
[2024-10-05] MEDS: POTASSIUM CHL 20MEQ/100ML 100 ML IV ONE (18:35)
[2024-10-05] MEDS: POTASSIUM CHLORIDE 20 MEQ in D5W/LACTATED RINGERS 1,000 ML IV SCH (22:30)
[2024-10-06] VITALS (9 sets, daily range): BP systolic 97–128; BP diastolic 65–87; PULSE 51–69; RESP 17–18; TEMP 97.6–98.6; O2SAT 97–100
[2024-10-06 07:51] LABS: Anion Gap 11 (5-15); Calcium 9.1 mg/dL (8.7-10.4); Carbon Dioxide 23 mmol/L (20-31); Chloride 106 mmol/L (98-107); Potassium 4.1 mmol/L (3.5-5.1); Sodium 140 mmol/L (136-145)
[2024-10-06 07:57] LABS: Glucose 88 mg/dL (74-106)
[2024-10-06 07:58] LABS: Hematocrit 43.0 % (41.0-53.0); Hemoglobin 15.4 g/dL (13.5-17.5); Mean Corpuscular Hemoglobin 32.4 pg (28.0-32.0); Mean Corpuscular Volume 90.6 fL (80.0-100.0)
[2024-10-06 07:59] LABS: BUN/Creatinine Ratio 5.8 (10.0-20.0); Blood Urea Nitrogen < 5 mg/dL (9-23)
[2024-10-06 08:37] LABS: Total Cells Counted 100.0 (100)
--- NOTE | 2024-10-06 15:20 | DVHPN2 ---
Assessment/Plan Assessment/Plan progress note 48 M admitted for diverticulitis with contained perf. seen by [facility], for conservative management seen today, pain improved,abdomen soft, tolerating liq diet. plan to dc once cleared by surgery. replete K physical exam aox4 PERLLA MMM ctab s1 s2 rrr abdomen soft, tender, no guarding no LE edema labs ekg imaging reviewed acute diverticulitis with rupture surg eval zosyn pain mgmt diet liq diet dvt ppx hold full code Plan discussed with: Patient My Orders Orders - EDWIN MCMAHAN MD Procedure Category Date Status Time D5w/Lactated PHA 10/05/24 In Process Ringer... W/Potassium 22:30 Date of Service: Oct 06, 2024 Billing Provider: EDWIN MCMAHAN MD Common Visit Codes: [id number] INP/OBS CARE(HIGH) EDWIN MCMAHAN MD Oct 06, 2024 15:20
--- NOTE | 2024-10-06 22:25 | DVHPN2 ---
Progress Note Date Seen: Oct 06, 2024 Medical Necessity Reason Pt with a Central, PICC or Fol: No Objective vital signs Vital Sign Date Time Temp Pulse Resp B/P (MAP) Pulse Ox O2 Delivery O2 Flow Rate FiO2 10/06/24 21:48 74 18 122/71 10/06/24 21:00 97.9 99 97.9 10/06/24 08:25 Room Air* 0 21 Total Intake and Output 10/05/24 10/05/24 10/06/24 15:00 23:00 07:00 Intake Total 100 ml 100 ml 405 ml Balance 100 ml 100 ml 405 ml medications Current Medications Medications Dose Ordered Sig/Corbin Route Start Time Stop Time Status Last Admin Dose Admin Morphine Sulfate 2 mg Q4HPRN PRN IV 10/02/24 12:30 10/06/24 21:48 2 MG Piperacillin Sod/ Tazobactam Sod 100 ml @ 25 mls/hr Q6HR IV 10/02/24 18:00 10/06/24 18:46 25 MLS/HR Pantoprazole Sodium 40 mg DAILY IV 10/03/24 10:00 10/06/24 09:47 40 MG Potassium Chloride 20 meq/ Dextrose/Lactated Ringer's 1,010 ml @ 100 mls/hr Q10H6M IV 10/05/24 22:30 laboratory and microbiology Laboratory Tests 10/06/24 06:39 Test 10/06/24 06:39 Range/Units Serum Glucose 88 74-106 mg/dL Microbiology Date/Time Source Procedure Growth Status 10/02/24 11:34 Blood Blood Culture - Preliminary NO GROWTH AFTER 72 HOURS OF INCUBATION. Resulted Problem List/Assessment/Plan Problem List/Assessment/Plan AFEBRILE VSS ABD SOFT NON TENDER GREER CLEAR LIQUIDS NO INDICATION FOR URGENT SURGERY ALLOW FULL LIQUIDS Plan discussed with: Patient Dietary Evaluation Review Comments: 1) If patient remains NPO > 7 days, consider EN/TPN to meet at least 75% of estimated daily needs 2) Advance to low-fat, low-fiber diet when medically feasible 3) Follow-up with gastroenterology 4) Continue to monitor I&O, labs, and skin integrity Expected Outcomes/Goals: 1) patient to receive nutrition support within 7 days of NPO status 2) GI symptoms and labs to improve 3) diet to advance 4) f/u in 2-3 days SHERIE SY MD Oct 06, 2024 22:25
[2024-10-07] VITALS (7 sets, daily range): BP systolic 101–124; BP diastolic 70–84; PULSE 57–86; RESP 16–19; TEMP 97.6–98.5; O2SAT 94–100
[2024-10-07 07:45] LABS: Calcium 9.3 mg/dL (8.7-10.4); Chloride 105 mmol/L (98-107); Sodium 142 mmol/L (136-145)
[2024-10-07 07:46] LABS: Anion Gap 9 (5-15); Carbon Dioxide 28 mmol/L (20-31)
[2024-10-07 07:51] LABS: Glucose 92 mg/dL (74-106)
[2024-10-07 07:52] LABS: BUN/Creatinine Ratio 5.4 (10.0-20.0); Blood Urea Nitrogen < 5 mg/dL (9-23); Potassium 3.3 mmol/L (3.5-5.1)
[2024-10-07 08:15] LABS: Hematocrit 43.5 % (41.0-53.0); Hemoglobin 15.6 g/dL (13.5-17.5); Mean Corpuscular Hemoglobin 31.7 pg (28.0-32.0); Mean Corpuscular Volume 88.4 fL (80.0-100.0); Nucleated Red Blood Cells % 0.1 %
[2024-10-07] MEDS: POTASSIUM EFFERVESENT TAB 25 MEQ PO ONE (13:42)
--- NOTE | 2024-10-07 14:40 | DVHPN2 ---
Assessment/Plan Assessment/Plan progress note 48 M admitted for diverticulitis with contained perf. seen by [facility], for conservative management seen today, discussed with surgery. keep on liq diet, repeat scan in 1 week., plan to dc tomorrow physical exam aox4 PERLLA MMM ctab s1 s2 rrr abdomen soft, tender, no guarding no LE edema labs ekg imaging reviewed acute diverticulitis with rupture surg eval zosyn pain mgmt diet liq diet dvt ppx hold full code Plan discussed with: Patient Date of Service: Oct 07, 2024 Billing Provider: EDWIN MCMAHAN MD Common Visit Codes: [id number] INP/OBS CARE(HIGH) EDWIN MCMAHAN MD Oct 07, 2024 14:40
--- NOTE | 2024-10-07 14:49 | DVHPN2 ---
Progress Note Date Seen: Oct 07, 2024 Medical Necessity Reason Pt with a Central, PICC or Fol: No Objective vital signs Vital Sign Date Time Temp Pulse Resp B/P (MAP) Pulse Ox O2 Delivery O2 Flow Rate FiO2 10/07/24 12:28 98.5 85 18 124/84 (97) 98 98.5 10/07/24 08:00 Room Air* 0 21 Total Intake and Output 10/06/24 10/06/24 10/07/24 15:00 23:00 07:00 Intake Total 100 ml 1600 ml 380 ml Output Total 380 ml Balance 100 ml 1600 ml 0 ml medications Current Medications Medications Dose Ordered Sig/Corbin Route Start Time Stop Time Status Last Admin Dose Admin Morphine Sulfate 2 mg Q4HPRN PRN IV 10/02/24 12:30 10/07/24 11:30 2 MG Piperacillin Sod/ Tazobactam Sod 100 ml @ 25 mls/hr Q6HR IV 10/02/24 18:00 10/07/24 11:14 25 MLS/HR Pantoprazole Sodium 40 mg DAILY IV 10/03/24 10:00 10/07/24 08:38 40 MG Potassium Chloride 20 meq/ Dextrose/Lactated Ringer's 1,010 ml @ 100 mls/hr Q10H6M IV 10/05/24 22:30 laboratory and microbiology Laboratory Tests 10/07/24 06:33 Test 10/07/24 06:33 Range/Units Serum Glucose 92 74-106 mg/dL Microbiology Date/Time Source Procedure Growth Status 10/02/24 11:34 Blood Blood Culture - Final NO GROWTH AFTER 5 DAYS OF INCUBATION. Complete Problem List/Assessment/Plan Problem List/Assessment/Plan AFEBRILE VSS ABD SOFT NON TENDER GREER FULL LIQUIDS NO INDICATION FOR URGENT SURGERY CONTINUE CLOSE OBSERVATION IF DISCHARGE CONSIDERED REPEAT CT SCAN ABD AND PELVIS IN WEEK Plan discussed with: Patient Dietary Evaluation Review Comments: 1) If patient remains NPO > 7 days, consider EN/TPN to meet at least 75% of estimated daily needs 2) Advance to low-fat, low-fiber diet when medically feasible 3) Follow-up with gastroenterology 4) Continue to monitor I&O, labs, and skin integrity Expected Outcomes/Goals: 1) patient to receive nutrition support within 7 days of NPO status 2) GI symptoms and labs to improve 3) diet to advance 4) f/u in 2-3 days KERRIE,SHERIE K MD Oct 07, 2024 14:49
[2024-10-08 01:00] VITALS: BP 116/67; PULSE 64; RESP 18; TEMP 98.6; O2SAT 98
[2024-10-08 05:00] VITALS: BP 97/62; PULSE 50; RESP 17; TEMP 98.3; O2SAT 98
[2024-10-08 08:00] VITALS: PULSE 56; PULSE 60; RESP 16; O2SAT 100
[2024-10-08 09:00] VITALS: BP 100/64; PULSE 60; RESP 18; TEMP 97.7; O2SAT 100
[2024-10-08] MEDS: OMNIPAQUE 12mg/ml 500ml ORAL SOLUTION PO ONE (09:34)
[2024-10-08] MEDS ORDERED: AUG875T PO (11:51)
[2024-10-08] MEDS ORDERED: HYDR-4902 PO (11:51)
[2024-10-08 13:00] VITALS: BP 121/85; PULSE 74; RESP 17; TEMP 97.5; O2SAT 98
[2024-10-08 13:35] VITALS: BP 121/85; PULSE 74; RESP 19; TEMP 97.5; O2SAT 98
--- NOTE | 2024-10-08 19:33 | DVHDS2 ---
Discharge Summary Date of Admission Oct 02, 2024 at 12:27 Date of Discharge: Oct 08, 2024 Labs/Diagnostic Data: Laboratory Results Test 10/07/24 06:33 10/06/24 06:39 10/05/24 06:34 10/03/24 04:13 White Blood Count 4.7 10^3/uL (4.4-10.8) Red Blood Count 4.92 10^6/uL (4.5-5.90) Hemoglobin 15.6 g/dL (13.5-17.5) Hematocrit 43.5 % (41.0-53.0) Mean Corpuscular Volume 88.4 fL (80.0-100.0) Mean Corpuscular Hemoglobin 31.7 pg (28.0-32.0) Mean Corpuscular Hemoglobin Concent 35.9 g/dL (32.0-36.0) Red Cell Distribution Width 12.4 % (11.8-14.3) Platelet Count 337 10^3/uL (140-450) Mean Platelet Volume 8.0 fL (6.9-10.8) Neutrophils (%) (Auto) 54.7 % (37.0-80.0) Lymphocytes (%) (Auto) 26.2 % (10.0-50.0) Monocytes (%) (Auto) 12.2 % (0.0-12.0) Eosinophils (%) (Auto) 6.4 % (0.0-7.0) Basophils (%) (Auto) 0.5 % (0.0-2.0) Neutrophils # (Auto) 2.6 10 ^3/uL (1.6-8.6) Lymphocytes # (Auto) 1.2 10 ^3/uL (0.4-5.4) Monocytes # (Auto) 0.6 10 ^3/uL (0-1.3) Eosinophils # (Auto) 0.3 10 ^3/uL (0-0.8) Basophils # (Auto) 0 10 ^3/uL (0-0.2) Nucleated Red Blood Cells 0.1 % Sodium Level 142 mmol/L (136-145) Potassium Level 3.3 mmol/L (3.5-5.1) Chloride Level 105 mmol/L (98-107) Carbon Dioxide Level 28 mmol/L (20-31) Anion Gap 9 (5-15) Blood Urea Nitrogen < 5 mg/dL (9-23) Creatinine 0.92 mg/dL (0.700-1.30) Glomerular Filtration Rate Calc 104 mL/min (>90) BUN/Creatinine Ratio 5.4 (10.0-20.0) Serum Glucose 92 mg/dL (74-106) Calcium Level 9.3 mg/dL (8.7-10.4) Differential Total Cells Counted 100.0 (100) Neutrophils % (Manual) 59 (37.0-80.0) Band Neutrophils % (Manual) 0 Lymphocytes % (Manual) 25 (10.0-50.0) Monocytes % (Manual) 6 (0-12) Eosinophils % (Manual) 10 (0-7) Basophils % (Manual) 0 (0.0-2.0) Metamyelocytes % (manual) 0 Myelocytes % (Manual) 0 Promyelocytes % (Manual) 0 Blast Cells % (Manual) 0 Reactive Lymphocytes 0 Platelet Estimate Adequate POC Glucose 73 mg/dl (70-106) Total Bilirubin 2.3 mg/dL (0.2-1.0) Aspartate Amino Transferase (AST) 23 U/L (13-40) Alanine Aminotransferase (ALT) 21 U/L (7-40) Alkaline Phosphatase 64 U/L (46-116) Total Protein 6.5 g/dL (5.7-8.2) Albumin 4.1 g/dL (3.2-4.8) Test 10/02/24 12:45 10/02/24 11:34 Prothrombin Time 11.1 sec (9.3-11.8) Prothrombin Time INR 1.05 (0.9-1.15) Lactic Acid Level 1.5 mmol/L (0.4-2.0) Other Laboratory Tests 10/07/24 06:33 Brief Hx & Hospital Course: 48 M admitted for diverticulitis with contained perf. seen by [facility], for conservative management. received iv abx, was NPO, diet escalated as tolerated. hypokalemia repleted. stable to dc home with oral abx. f/u with surgery clinic in 2 weeks, repeatct iwth iv and oral contrast in 1 week. dc w augmentin Condition at Discharge: Good Final Diagnosis/Problems List diverticulitis with contained perf hypokalemia Discharge Disposition: Home Discharge Instruct/Medications Diet: See Comment Diet comment: liquid Activity: No Restrictions, As Tolerated Follow Up/Referral: dc clinic before [address] with iv and oral contrast 1 week Medications: augmentin 2weeks Scheduled Amoxicillin & Pot Clavulanate (Augmentin Tablet), 875 MG PO BID Scheduled PRN Hydrocodone-Acetaminophen (Hydrocodone Bitartrate/AC 5-325 mg), 1 TAB PO Q8HP PRN Discontinued Medications Albuterol Sulfate (Ventolin Mdi), 2 PUFF IN for SHORTNESS OF BREATH, (Reported) Discharge Statement: "Patient was advised to return to the ER or call 911 if any headaches, dizziness, shortness of breath, chest pain, abdominal pain, bleeding, fevers, or worsening of medical condition. Patient was counseled about treatment plan, medications, possible side effects, patientverbalized understanding. All questions were answered to the best of my ability. This discharge took greater then 30 minutes in planning, reviewing documentation, counseling the patient, and discussing with other team members." ASSESSMENT ASSESSMENT Assessment diverticulitis with contained perf Date of Service: Oct 08, 2024 Billing Provider: EDWIN MCMAHAN MD Common Visit Codes: [id number] DISCH DAY >30min EDWIN MCMAHAN MD Oct 08, 2024 19:33
== END 2024-10-08 15:05 | disposition home or self-care (01) | DRG 720 ==
LOC: ER 07:59 → OVERFLOW 12:27 → TELE-WESTW 10-03 05:27
PROVIDERS: ADMIT Student in an Organized Health Care Education/Training Program; ATTEND Student in an Organized Health Care Education/Training Program
DX: A41.9 Sepsis, unspecified organism (principal); K57.20 Diverticulitis of large intestine with perforation and abscess without bleeding; E87.6 Hypokalemia; Z79.899 Other long term (current) drug therapy
CPT/HCPCS: 36415; 74176; 80048; 80053; 82962; 83605; 84132; 85007; 85025; 85027; 85610; 86850; 86900; 86901; 87040; 96365; 96375; G0378; J2405; J2470; J2543; J3480; J3490